=== PATIENT | male | born 1965 | race Caucasian/White ===

== ENCOUNTER → 2022-03-29 14:14 | Outpatient (BNVA) | payer MEDICAID, SELFPAY | PROVIDERS: PCP Student in an Organized Health Care Education/Training Program; Visit Provider Physician Assistant | DX: R20.0 Anesthesia of skin (principal); R20.2 Paresthesia of skin; G56.20 Lesion of ulnar nerve, unspecified upper limb | CPT/HCPCS: 99202 ==

== ENCOUNTER 2022-05-05 16:33 | Outpatient (REF) | payer MEDICAID, SELFPAY ==
--- NOTE | ~2022-05-05 | MR_ITS ---
EXAMINATION: MR CERVICAL SPINE WITHOUT CONTRAST CLINICAL INFORMATION: Right hand numbness. COMPARISON: There are no prior studies available for comparison. TECHNIQUE: Limited MRI scan of the cervical spine was obtained due to patient claustrophobia. Only localizing sagittal T2 sequences were obtained. FINDINGS: There is a mild levoscoliosis. There is multilevel narrowing of intervertebral disc height with loss of signal, which appears most severe at C4-C5. There is diffuse loss of vertebral body height of T7 which is age indeterminate. There are areas of hyperintense T2 signal in the bodies of T4, T6 and T1 which are nonspecific. There is multilevel foraminal narrowing which appears most severe on the left at C5-C6, C6-C7 and C7-T1. Foraminal narrowing on the right is most severe at C4-C5, C6-C7 and C7-T1 MR/MR cervical spine wo con IMPRESSION: 1. Limited study as described above due to patient claustrophobia. 2. There is multilevel spondylosis with narrowing of intervertebral disc height and foraminal narrowing. There is an age-indeterminate compression fracture of the body of C7. Areas of hyperintense T2 signal are demonstrated in multiple osseous areas which are nonspecific.
--- NOTE | ~2022-05-05 | XR_ITS ---
EXAMINATION: LEFT HAND CLINICAL INFORMATION: History of radiopaque foreign body COMPARISON: None TECHNIQUE: 4 views FINDINGS: There is a 5 mm radiopaque foreign body seen adjacent to the third metatarsal head dorsal aspect. No gross bony abnormality seen. XR/XR pre mri screening IMPRESSION: 5 mm radiopaque foreign body seen adjacent to the third metatarsal head dorsal aspect. No gross bony abnormality seen.
== END 2022-05-05 16:34 | disposition home or self-care (01) ==
LOC: HO.MRI 16:33
PROVIDERS: Visit Provider Physician Assistant
DX: G56.20 Lesion of ulnar nerve, unspecified upper limb (principal); M60.242 Foreign body granuloma of soft tissue, not elsewhere classified, left hand; Z18.10 Retained metal fragments, unspecified
CPT/HCPCS: 72141

== ENCOUNTER 2022-05-18 14:20 | Outpatient (REF) | payer MEDICAID, SELFPAY ==
--- NOTE | 2022-05-18 08:30 | EMG_ITS ---
Right median and ulnar motor and sensory studies were performed. Right radial sensory study was performed and paraspinal muscles were tested with a needle. IMPRESSION: 1. Saum-qz-quaybhhh right ulnar neuropathy across cubital tunnel. 2. Dxra-lc-havncypi right median neuropathy across carpal tunnel. MD YFERI Webb/NICOLE / [id number]
== END 2022-05-18 14:21 | disposition home or self-care (01) ==
LOC: HO.NEURO 14:20
PROVIDERS: Visit Provider Internal Medicine
DX: R20.0 Anesthesia of skin (principal); R20.2 Paresthesia of skin; M65.331 Trigger finger, right middle finger
CPT/HCPCS: 95886; 95909

== ENCOUNTER → 2022-05-29 12:56 | Outpatient (BNVA) | payer MEDICAID, SELFPAY | PROVIDERS: PCP Student in an Organized Health Care Education/Training Program; Visit Provider Orthopaedic Surgery | DX: G56.21 Lesion of ulnar nerve, right upper limb (principal); G56.01 Carpal tunnel syndrome, right upper limb | CPT/HCPCS: 99212 ==

== ENCOUNTER 2022-06-07 09:46 | Outpatient (RCR) | payer MEDICAID, SELFPAY ==
--- NOTE | 2022-06-21 15:50 | MHC.OT.DC ---
[address] [phone] F: [phone] Occupational Therapy Discharge Note Provider: Modesta Morales Diagnosis: Right hand stiffnes. Right ulnar nerve lesion Date of Surgery: Date of Evaluation: 06/07/22 Date of Discharge: 06/21/22 Treatments to Date: 1 Cancellations to Date: No Shows to Date: Discharge Status: Discharge Summary: Pt is a 56 yo male who presents with severe right hand muscle atrophy with a recent diagnosis of mild-moderate ulnar neuropathy across the elbow and median nerve at the carpal tunnel Pt was seen for a night hand extension orthosis and education and practice with self P/AROM to improve joint stiffness and prevent worsening Recommended a short course of OT for ther ex and ADL training. Have not been able to contact pt by telephone to schedule Pt was very drowsy during orthosis fabrication and ROM exercises He is scheduling for a Carpal tunnel release and a Cubital tunnel release. I anticipate re referral at post op visit. Electronically Signed By: Renetta Rowan OT CHT CLT Reviewed/agree with student documentation: Therapist: Please Sign and return to therapist, thank you for your referral.
== END 2022-06-21 15:50 | disposition home or self-care (01) ==
LOC: HO.OT 09:46
PROVIDERS: PCP Student in an Organized Health Care Education/Training Program; Visit Provider Orthopaedic Surgery
DX: G56.21 Lesion of ulnar nerve, right upper limb (principal); M25.641 Stiffness of right hand, not elsewhere classified
CPT/HCPCS: 29130; 97166; 97760

== ENCOUNTER → 2022-07-19 13:35 | Outpatient (BNVA) | payer MEDICAID, SELFPAY | PROVIDERS: PCP Student in an Organized Health Care Education/Training Program; Visit Provider Orthopaedic Surgery | DX: G56.21 Lesion of ulnar nerve, right upper limb (principal); G56.01 Carpal tunnel syndrome, right upper limb | CPT/HCPCS: 99212 ==

== ENCOUNTER 2022-07-24 06:00 | Day surgery (SDC) | payer MEDICAID, SELFPAY ==
[2022-07-17 11:19] VITALS: BMI 24.3
[2022-07-24] VITALS (7 sets, daily range): BP systolic 131–184; BP diastolic 69–100; PULSE 70–88; RESP 17–18; TEMP 36.5–36.6; O2SAT 93–98
[2022-07-24] MEDS: Lactated Ringers 1,000 ML 50 ML IVCONT (06:24)
--- NOTE | 2022-07-24 07:31 | P.CONAN_ITS ---
HPI - Anesthesia Eval Consult details Narrative: 56 yr oldsmoker forright CTS and cubital tunnel PMFSH Active Problems Active Problems: All Active Problems (Updated 07/17/22 @ 11:16 by Becca Kebede RN) Ulnar nerve abnormality (Acute) Cubital tunnel syndrome on right (Acute) Carpal tunnel syndrome of right wrist (Acute) Stiffness of finger joint of right hand (Acute) Past Medical History Medical History Chronic back pain GERD (gastroesophageal reflux disease) History of diverticulitis History of opioid abuse Smoker Surgical History Surgical History History of colon surgery Hx of colonoscopy History of Problems with Anesthesia: No Social History Social History Are you a primary managed care analyst to a significant other at home: No Do you presently have visiting nurse or other home services: No Patient Tobacco Use Status: Current everyday Tobacco user Tobacco use type: Cigarette Cigarette Packs Per Day: 1 Cigarettes Per Day: 20.0 Years Smoked: 42 years Smoked in Last 30 Days: Yes Patient Interested in Nicotine Replacement: No Patient Given Instructions on How to Stop Smoking: Yes Date Education Initiated: 07/17/22 Use of substances other than those prescribed or required for medical reasons: No Substance Use Type Other:: On Suboxone s/p Opioid abuse Substance Use Frequency: Daily Are you DNR?: No Advance Directives: No Advance Directives Information Provided: Yes Advance Directives on File: No Recently lost weight without trying: No Eating poorly because of decreased appetite: No Nutrition Risks: No Nutritional Risk Current occupational status: employed 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, 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 [employer] Allergies Allergy/AdvReac Type Severity Reaction Status Date / Time bees Allergy Severe Hives Uncoded 07/24/22 06:44 Active Medications: Current Medications Lactated Ringer's (Lr) 1,000 mls @ 50 mls/hr IVCONT .Q20H MALLORY Last Admin: 07/24/22 06:24 Dose: 50 mls/hr Home Medications Medication Instructions Recorded Confirmed Last Taken Type buprenorphine 8 mg-naloxone 2 mg 1 film buccal DAILY 03/29/22 07/17/22 07/23/22 23:30 History sublingual film (Suboxone) omeprazole 20 mg capsule,delayed 1 cap PO DAILY 07/24/22 07/24/22 Unknown History release Exam Exam Date and Time: July 24, 2022 0731 Height,Weight and Vital Signs: Height 5 ft 10 in Weight 77.111 kg Last Vital Signs Temp 97.7 F 07/24/22 06:34 Pulse 72 07/24/22 06:34 Resp 18 07/24/22 06:34 BP 157/78 H 07/24/22 06:34 Pulse Ox 96 07/24/22 06:34 O2 Del Method 07/24/22 06:34 Airway Mallampati Class: II TM Dist: >3cm Neck ROM: Full Loose/Missing/Broken Teeth: Yes and Upper Heart: rrr Lungs: cta Assessment and Plan Assessment Anesthesia Assessment: Anesthesia Plan Discussed and Chart Reviewed Final Anesthetic Review History of Problems with Anesthesia: No NPO: Yes ASA Class: II Final Preanesthetic Review: No Changes in Pt Med Stat, Meds/Allgs Chart Reviewed, Consent Obtained/Reviewed and Anes Risks/Benef Reviewed Patient Risk: Low Procedure Risk: Low Anesthetic Plan Anesthetic Plan: GA and Agree w/ Assess. and Plan Disposition: Standard PACU
--- NOTE | 2022-07-24 07:55 | P.OP_ITS ---
Operative Note Operative Note Date of Service: 07/24/22 Narrative: Operative Note Narrative: Preop diagnosis: 1. Right severe Cubital tunnel syndrome with intrinsic wasting and clawing 2. Right carpal tunnel syndrome Postop diagnosis: Same Procedure: 1. Right Cubital Tunnel Release and anterior ulnar nerve transposition 2. Right carpal tunnel release Surgeon: Modesta Morales MD Anesthesia: General Anesthesia Findings: Significant Thickening and fibrosis about the ulnar nerve at the cubital tunnel and as it passed between the 2 heads of the FCU muscle bellies Implants: none Tourniquet time: 45 minutes EBL: 5.0 ml Specimen: none Drains: None Complications: None Disposition: Brought to the recovery room in stable condition Plan: Follow-up in 10-14 days for wound check, and suture removal Indications: The patient is 56 years old with severe right cubital tunnel syndrome with intrinsic wasting and clawing, and right carpal tunnel syndrome . The risks and benefits of operative treatment, including but not limited to risk of damage to blood vessels, nerves, tendons, infection, recurrence, persistent pain or numbness, incomplete resolution of preoperative symptoms, or need for further surgery were discussed with the patient and they wished to proceed with surgery. Procedure: Once consent was obtained patient was brought back to the operating suite and placed in the operating table in a supine position. Perioperative antibiotics and anesthesia was administered by the anesthesia team. The limb was prepped and draped in a standard surgical fashion, and a sterile tourniquet applied to the proximal aspect of the right upper extremity. The limb was elevated exsanguinated with Esmarch bandage and the tourniquet inflated to 250 mm of mercury for a total tourniquet time of 45 minutes. Once assured that we had a good block, a 2.0 cm longitudinal incision was made centered over the right carpal tunnel. The incision was made through the skin to the subcutaneous tissues using a #15 blade. Dissection was made down to the level of the transverse carpal ligament with care being taken to protect the palmar cutaneous nerve. Once the transverse carpal ligament was clearly visualized, a longitudinal incision was made in the transverse carpal ligament 1st using a #15 blade, then using tenotomy scissors under direct visualization. Care was taken to look for and protect the motor branch of the median nerve when seen in this area. Once satisfied with our carpal tunnel release the wound was irrigated with normal saline. A 6 cm gently curved but longitudinally oriented incision was made centered over the cubital tunnel of the right upper extremity. Incision was made through the skin to the subcutaneous tissues using a # 15 Blade. I then dissected down to the level of the medial epicondyle and the cubital tunnel using tenotomy scissors. Care was taken to protect the lateral antebrachial cutaneous nerve. The ulnar nerve was identified just posterior to the medial intermuscular septum. The ulnar nerve was released in a proximal to distal direction using tenotomy in iris scissors while directly visualizing and protecting the ulnar nerve. Significant Thickening and fibrosis was appreciated about the ulnar nerve as it passed through the cubital tunnel and through the 2 heads of the FCU. The ulnar nerve was assessed as I passed the elbow through full flexion and extension and it was found to sublux anteriorly onto the medial epicondyle.. As the ulnar nerve appeared to subluxate over the medial epicondyle, the decision was made to proceed with an anterior ulnar nerve transposition. The matthew bcutaneous tissue was carefully freed from the fascia anterior to the medial epicondyle creating an appropriate bed for the ulnar nerve transposition. A small vessel loop was passed behind the ulnar nerve to help facilitate its mobilization. The ulnar nerve was then freed and carefully transposed anterior to the medial epicondyle. Some of the subcutaneous tissue in the anterior flap was carefully secured to the fascia about the medial epicondyle using some 4-0 Vicryl suture material. This created a sling to prevent posterior subluxation of the ulnar nerve. The elbow was brought through flexion and extension and the ulnar nerve was evaluated in its transposition site and found to have good ability to glide and to be free from undo pressure from the anterior sling. At this point the tourniquet was deflated and hemostasis obtained with a brief period of local pressure and bipolar electrocautery. The wound was copiously irrigated with normal saline. The subcutaneous layer was closed with 4-0 Vicryl suture, and the skin edges were reapproximated with 5-0 nylon suture. The wound was infiltrated with some 0.25% plain ropivacaine at the carpal tunnel site, and with some 2% lidocaine with epinephrine at the elbow for postop pain control and sterile dressings and a posterior splint was applied. The patient appears to have tolerated the procedure well and with no complications. All digits were well vascularized conclusion of the case.
--- NOTE | 2022-07-24 07:55 | MHC.SHP ---
Pre-Procedural Eval Section A Date of Service: 07/24/22 The patient is an INPATIENT: No Changes since office visit: No Cold of Flu in the past 2 weeks, No New Medical Problems, No Changes in Medication and No Patient answered all questions The History & Physical has been completed within 30 days and I have reviewed it.: Yes Section B Chief Complaint: Lesion of ulnar nerve, right upper limb,carpal dania Allergies: Allergies Allergy/AdvReac Type Severity Reaction Status Date / Time bees Allergy Severe Hives Uncoded 07/24/22 06:44 Plan I have reviewed the history and physical and performed a pertinent physical examination on my patient. No changes have occurred unless specified. Time Spent With Patient Time: Total time managing care of this patient today ____ minutes.
== END 2022-07-24 10:48 | disposition home or self-care (01) ==
PROVIDERS: PCP Student in an Organized Health Care Education/Training Program; Visit Provider Orthopaedic Surgery
PROC: (CPT 64721; principal; 2022-07-24 07:30)
PROC: (CPT 64718; 2022-07-24 07:30)
DX: G56.01 Carpal tunnel syndrome, right upper limb (principal); G56.21 Lesion of ulnar nerve, right upper limb; G89.29 Other chronic pain; M54.9 Dorsalgia, unspecified; F11.20 Opioid dependence, uncomplicated; K21.9 Gastro-esophageal reflux disease without esophagitis; Z87.19 Personal history of other diseases of the digestive system; Z79.899 Other long term (current) drug therapy; F17.210 Nicotine dependence, cigarettes, uncomplicated
CPT/HCPCS: 64721; 64718; J0131; J0690; J1100; J1885; J2250; J2370; J2405; J2795; J3010

== ENCOUNTER → 2022-08-08 09:15 | Outpatient (BNVA) | payer MEDICAID, SELFPAY | PROVIDERS: PCP Student in an Organized Health Care Education/Training Program; Visit Provider Orthopaedic Surgery | DX: Z13.89 Encounter for screening for other disorder (principal) ==

== ENCOUNTER 2023-06-04 08:49 | Outpatient (REF) | payer MEDICAID, SELFPAY ==
[2023-06-04 14:35] LABS: Alanine Aminotransferase 15 U/L (0-40); Alkaline Phosphatase 66 U/L (39-117); Aspartate Amino Transferase 19 U/L (5-37); Bilirubin Direct 0.1 mg/dL (0.0-0.5); Bilirubin Total 0.4 mg/dL (0.0-1.0); Total Protein 7.6 g/dL (6.5-8.0)
[2023-06-04 14:52] LABS: Syphilis Screen Nonreactive (Nonreactive)
[2023-06-05 04:48] LABS: HIV AB/AG Nonreactive (Nonreactive); HIV Num 1 0.04 S/CO (0.00-0.99); ~HepC Num1 0.29 S/CO (0.00-0.79); ~Hepatitis C Antibody Nonreactive (Nonreactive)
[2023-06-07 07:49] LABS: TS Negative Control Passed; TS Panel A 0; TS Panel B 0; TS Positive Control Passed; TSpotTB Negative (Negative)
== END 2023-06-04 08:50 | disposition home or self-care (01) ==
LOC: HO.CHCLDS 08:49
PROVIDERS: Visit Provider Family Medicine
DX: F11.20 Opioid dependence, uncomplicated (principal)
CPT/HCPCS: 36415; 80076; 86481; 86780; 86803; 87389

== ENCOUNTER 2023-10-24 09:34 | Outpatient (AMB) | payer MEDICAID, SELFPAY ==
--- NOTE | 2023-10-24 09:39 | MHC.OFFVIS ---
Intake Visit Reasons: OV-R CTR/ Cubital v Trans 07/24/22 AR-follow up Intake Note: Oziel 58 yr old male presents today for his s/p right CTR/ Cubital release from 07/24/22 AR. States he continues to numbness and tingling and states his claw-hand deformity has worsen and is interfering with his work. 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 Allergies bees Allergy (Severe, Uncoded 08/08/22 09:29) Hives HPI HPI OV-R CTR/ Cubital v Trans 07/24/22 AR-follow up: Details: Oziel is a 58 year old right hand dominant man who returns to discuss his right hand numbness & claw deformity. He has a hx of a right carpal tunnel & cubital tunnel release, DOS: 07/24/22. He continues to have numbness in the ring and small finger, which has not improved since his surgery. He has normal sensation in the median nerve distribution. He complains of his claw-hand deformity in his ring & small fingers. He says he is unable to fully extend his fingers. He says this has been affecting his ability to work. 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 He is on Suboxone for a hx of Opioid use for his back pain. He brought with him some paperwork to claim disability & for welfare benefits. Patient says he is unable to work because of his hand. 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 Dense numbness in the ulnar nerve distribution With intrinsic wasting Vascular: Cap refill brisk ROM: He still has a claw-hand deformity, with flexion contractures in the right ring & small fingers He can bring them closed to a fist. Good active extension of the thumb index and middle fingers. Lack of intrinsics for the small and ring finger are leading to muscular imbalance and inability to actively extend the digits at the PIP joint Nerve Conduction study: IMPRESSION: 1. Glaj-vw-nhtqizmq right ulnar neuropathy across cubital tunnel. 2. Ivyq-tq-trkzmjel right median neuropathy across carpal tunnel. Gracie De Anda MD 05/18/2022 MR/MR cervical spine wo con IMPRESSION: 1. Limited study as described above due to patient claustrophobia. 2. There is multilevel spondylosis with narrowing of intervertebral disc height and foraminal narrowing. There is an age-indeterminate compression fracture of the body of C7. Areas of hyperintense T2 signal are demonstrated in multiple osseous areas which are nonspecific. Dictated By: ANTWAN DARNELL MD 05/09/22 Psych Appearance: grossly normal Affect: normal affect Attitude: cooperative Assessment & Plan Assessment & Plan (1) Deformity, hand, claw: Code(s): M21.519 - Acquired clawhand, unspecified hand Category: Medical (2) Stiffness of finger joint of right hand: Code(s): M25.641 - Stiffness of right hand, not elsewhere classified Category: Medical (3) Cubital tunnel syndrome on right: Code(s): G56.21 - Lesion of ulnar nerve, right upper limb Category: Medical (4) Foraminal stenosis of cervical region: Code(s): M48.02 - Spinal stenosis, cervical region Category: Medical Plan Assessment & plan: 1. Right Cubital tunnel syndrome, S/P release & anterior ulnar nerve transposition DOS: 07/24/22 Pre-operatively with dense numbness, severe intrinsic wasting and claw-hand deformity Still with dense numbness, severe intrinsic wasting and claw-hand deformity He continues to have issues with numbness, and proceed worsening of his claw deformity. I see that he did have a C-spine MRI on 05/05/2022 which she was able to tolerate . It does show some C-spine foraminal narrowing. I referred him to our neurosurgery spine specialists for assessment. 2. 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 3. Right Carpal tunnel syndrome, S/P release DOS: 07/24/2022 Pre-operative symptoms intermittent but daily Normal sensation in median nerve distribution postoperatively Scribed for Modesta Morales MD by Timmy Cueto, neuropsychology medical consultant, on 10/24/23 at 10:10 AM, EST. Orders: Orders OT Evaluation and Treatment Today G56.21 - Lesion of ulnar nerve, right upper limb, M21.519 - Acquired clawhand, unspecified hand, M25.641 - Stiffness of right hand, not elsewhere classified Referrals Neuro Spine Referral G56.21 - Lesion of ulnar nerve, right upper limb, M21.519 - Acquired clawhand, unspecified hand, M48.02 - Spinal stenosis, cervical region Coding Level of Care Code Est Pt Level 3 (43391) Diagnoses Deformity, hand, claw M21.519 Stiffness of finger joint of right hand M25.641 Cubital tunnel syndrome on right G56.21 Foraminal stenosis of cervical region M48.02
== END 2023-10-24 10:25 | disposition home or self-care (01) ==
PROVIDERS: PCP Student in an Organized Health Care Education/Training Program; Visit Provider Orthopaedic Surgery
DX: M21.511 Acquired clawhand, right hand (principal); M25.641 Stiffness of right hand, not elsewhere classified; G56.21 Lesion of ulnar nerve, right upper limb; M48.02 Spinal stenosis, cervical region
CPT/HCPCS: 99213

== ENCOUNTER → 2023-10-24 09:34 | Outpatient (BNVA) | payer MEDICAID, SELFPAY | PROVIDERS: PCP Student in an Organized Health Care Education/Training Program; Visit Provider Orthopaedic Surgery | DX: M21.511 Acquired clawhand, right hand (principal); M25.641 Stiffness of right hand, not elsewhere classified; G56.21 Lesion of ulnar nerve, right upper limb; M48.02 Spinal stenosis, cervical region; Z79.891 Long term (current) use of opiate analgesic | CPT/HCPCS: 99212 ==

== ENCOUNTER 2023-11-05 09:22 | Outpatient (AMB) | payer MEDICAID, SELFPAY ==
--- NOTE | 2023-11-05 09:31 | A.SPINEOV_ITS ---
Intake Visit Reasons: Spinal stenosis, cervical region Intake Note: Mr. Franks is here today c/o right hand discomfort with numbness. 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 Morales Thank you for referring Mr Franks to our office today. 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 There may be some numbness on his 4th and 5th digits but it is really nothing that is bothersome a noticeable for the most part. The main thing is the development of the contractures of the hand limiting his motion and range of motion of his fingers. He underwent an EMG last year showing evidence of mild carpal tunnel and mild cubital tunnel and underwent release of both of these nerve entrapments without any improvement in his symptoms. He has not report any pain going down his arm. He occasionally will get neck pain on the right side he has in a car for too long. He does feel like the hand is weaker than it was a year ago, but he has not sure if that is because he just has not been using it or if it is actually becoming more weak. An MRI was attempted and there was suspicion of bilateral neuroforaminal stenosis at C7-T1. He could not complete the MRI because of the amount of noise in the machine. PMH: Previous history of opioid abuse with use of Suboxone currently for back pain and he has been drug free for least 10 years. He had hand surgery in July of 2022 as outlined above. He did have a bout of diverticulitis once which was drained with a pigtail catheter. He has history of GERD. Denies any heart attacks, strokes, bleeding disorders, liver disorders, kidney problems her major intestinal surgery. Social hx: He does smoke cigarettes, but does not drink or use any recreational drugs Medications: Suboxone and omeprazole Allergies: None Physical exam: He is awake alert oriented, he has contractures of his 4th and 5th digits on his right hand. He is able to manually extend his fingers, but can not keep them open on his own. There is some wasting of the thenar muscles and possibly some of the finger intrinsics. 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 His left hand is about a 4+ out of 5. Sensory testing does not reveal any deficits. Reflex testing in the biceps triceps and brachioradialis show diminished reflexes throughout both sides. There may be some slight wasting of his forearm muscles as well. Imaging review: Cervical MRI done at [place] with just a sagittal T2 imaging shows what looks like an old compression fracture at C7 and bilateral neural foraminal stenosis at C7-T1 Impression: This is a 58-year-old gentleman with a previous history of cervical spine fracture at C7 remotely in the past, who has had over the last few years development of contractures of his right hand with loss of function of it because of the inability to extend his fingers. He works as a cost analyst and it makes holding things very difficult. He had an EMG done over a year ago that showed evidence of cubital tunnel and carpal tunnel syndrome he underwent release of both of these nerve entrapments without any improvement. In fact he feels as though his hand has only continued to get worse in the contractures are getting worse. He has no pain shooting down the arm, no subjective sensory symptoms and no objective sensation loss on exam. He does appear to have some wasting of the hand and maybe little of the forearm as well. He has not sure if the weakness in his hand is because of lack of use or if it has a true weakness but he does notice an appreciable worsening of his symptoms. The only imaging we have to review is a cervical spine sagittal image showing what looks like an old C7 fracture and neuroforaminal stenosis at C7-T1. This could cause him to have compromise of the C8 nerve which could give him wasting and muscle loss in the hand. It is possible the loss of muscle tone has caused some of the deformity in the hand were seeing with a contracture. It is unusual that the EMG did not picker and packer a C8 radiculopathy prior to his surgeries. It is also unusual that he has not had any pain radiating down the arm and for the most part does not have any sensory loss when I test him objectively in the office. I think it is worth looking into with a dedicated MRI that I will get with an open MRI which may be would be a bit more tolerable for him. It might all so be worthwhile repeating the EMG since he does state that the symptoms are getting worse. Once the MRI is completed and I have a chance to review with Dr. Penny, I will get back to the patient. Thank you for allowing us to care for your patient. The total time spent with this visit with this patient was 45 minutes reviewing history, physical exam, cervical imaging review, and implementation of treatment plan or further diagnostic testing Rajendra Penny MD,PhD [facility] Orders: Orders MR cervical spine wo con Today M48.02 - Spinal stenosis, cervical region Coding Level of Care Code New Pt Level 4 (27345) Diagnoses Foraminal stenosis of cervical region M48.02
== END 2023-11-05 10:17 | disposition home or self-care (01) ==
PROVIDERS: PCP Student in an Organized Health Care Education/Training Program; Referring Provider Orthopaedic Surgery; Visit Provider Physician Assistant
DX: M48.02 Spinal stenosis, cervical region (principal)
CPT/HCPCS: 99204

== ENCOUNTER → 2023-11-05 09:22 | Outpatient (BNVA) | payer MEDICAID, SELFPAY | PROVIDERS: PCP Student in an Organized Health Care Education/Training Program; Visit Provider Physician Assistant | DX: M48.02 Spinal stenosis, cervical region (principal) | CPT/HCPCS: 99212 ==

== ENCOUNTER 2023-12-28 14:33 | Outpatient (AMB) | payer MEDICAID, SELFPAY ==
--- NOTE | 2023-12-28 14:41 | HO.SPINEOV ---
Intake Visit Reasons: CT follow up/with in the office Intake Note: Mr. Franks is here today to f/u Re: his CT Scan. 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 We reviewed his CT scan done [facility] and indeed he does have severe foraminal narrowing at the C7-T1 interspace and compression of the right C8 nerve root. Dr. Penny and I met with him discuss the fact that he already has signs of atrophy in the weakness of the hand may not be able to return to any degree of function even with optimal decompression of the nerve given that there are already signs of nerve damage. Therefore, we can not be sure what the outcome of the surgery would be this gentleman feels as though he would like to just live with it as it is rather than risk a neck surgery. He does understand however that there is no expectation that the hand will improve and could continue to get worse. He will let us know if he changes his mind. Total amount of time spent in this visit was 20 minutes in discussion of symptoms, cervical CT imaging results and subsequent plan of care Rajendra Penny MD,PhD [facility] Coding Level of Care Code Est Pt Level 3 (17857) Diagnoses Foraminal stenosis of cervical region M48.02
== END 2023-12-28 14:43 | disposition home or self-care (01) ==
PROVIDERS: PCP Student in an Organized Health Care Education/Training Program; Visit Provider Physician Assistant
DX: M48.02 Spinal stenosis, cervical region (principal)
CPT/HCPCS: 99213

== ENCOUNTER → 2023-12-28 14:33 | Outpatient (BNVA) | payer MEDICAID, SELFPAY | PROVIDERS: PCP Student in an Organized Health Care Education/Training Program; Visit Provider Physician Assistant | DX: M48.02 Spinal stenosis, cervical region (principal) | CPT/HCPCS: 99212 ==

== ENCOUNTER 2024-08-13 12:31 | Outpatient (REF) | payer MEDICAID, SELFPAY ==
[2024-08-13 14:55] LABS: Alanine Aminotransferase 21 U/L (0-40); Alkaline Phosphatase 77 U/L (39-117); Aspartate Amino Transferase 26 U/L (5-37); Bilirubin Direct 0.1 mg/dL (0.0-0.5); Bilirubin Total 0.3 mg/dL (0.0-1.0); Total Protein 7.9 g/dL (6.5-8.0)
--- OUTSIDE RECORDS SUMMARY | 2024-08-13 15:18 | XMS_ITS | Clinical Summary ---
Author Organization [employer] Address [address] [place] [address] Care Team Providers Care Deck And Hull Assembler Name Role Phone Audra Golden MD Primary Care Provider [phone] Allergies No known active allergies Medications albuterol (ProAir HFA) 108 (90 Base) MCG/ACT inhaler inhale 2 puffs by inhalation route 3-4 times every day 7 Active aspirin 81 MG EC tablet Take 1 tablet by mouth at bed time. 8 Active Blood Pressure Monitoring (Omron 3 Series BP Monitor) device Check blood pressure on arm as directed 2 Active diphenhydrAMINE (Benadryl Allergy) 25 MG tablet Take 1 tablet by mouth. 2 Active naloxone (Narcan) 4 mg/0.1 mL nasal spray Administer 0.1 mL into affected nostril(s). 0 Active predniSONE (Deltasone) 20 MG tablet Take 1 tablet by mouth every 12 (twelve) hours. 2 Active predniSONE (Deltasone) 20 MG tablet PLEASE SEE ATTACHED FOR DETAILED DIRECTIONS 2 Active simvastatin (Zocor) 10 MG tablet Take 1 tablet by mouth at bed time. 1 Active nicotine (Nicoderm CQ) 21 MG/24HR patchIndications: Tobacco dependence syndrome Place 1 patch on the skin 1 (one) time each day at the same time. 28 patch 1 3 Active omeprazole OTC (PriLOSEC OTC) 20 MG EC tabletIndications :Gastroesophageal reflux disease, unspecified whether esophagitis present take 1 Tablet by Oral route once a day 90 tablet 1 4 Active Suboxone 8-2 MG SL filmIndications:O pioid dependence, uncomplicated (CMS/HCC) Place 1 Film under the tongue Once per day. 28 Film 1 5 08/20/19 25 Active Active Problems Problem Noted Date Diagnosed Date Contact with and (suspected) exposure to covid-1 9 05/03/2021 Abscess 10/14/2013 Tobacco dependence syndrome 07/03/2013 Uncomplicated opioid dependence 07/03/2013 Gastroesophageal reflux disease 07/03/2013 Diverticulitis 07/03/2013 Encounters Date Type Department Care Team Description 06/30/2024 9:00 AM EST Office Visit [facility] [address] [place] [address] Cameron Mchugh MD Uncomplicated opioid dependence (CMS/HCC) (Primary Dx) 06/30/2024 Travel 06/23/2024 Refill [facility] [address] [place] [address] Caryn Estrada RN Opioid dependence, uncomplicated (CMS/HCC) from Last 3 Months Immunizations Name Administration Dates Next Due Influenza injectable quadrivalent preservative f ree 07/09/2018 Tdap 06/15/2016 Social History Tobacco Use Types Packs/Day Years Used Date Smoking Tobacco: Every Day Cigarettes 1 20 Smokeless Tobacco: Never Tobacco Cessation:Ready to Q uit: No; Counseling Given: No Sex and Gender Information Value Date Recorded Sex Assigned at Male 04/17/2022 10:25 AM EDT Legal Sex Male 10:25 AM EDT Gender Identity Male 04/17/2022 10:25 AM EDT Sexual Orientation Straight 04/17/2022 10 :25 AM EDT Last Filed Vital Signs Vital Sign Reading Time Taken Comments Blood Pressure 164/83 10/25/2023 1:00 PM EDT Pulse 84 10/25/2023 1:00 PM EDT Temperature 36.1 ??C (96.9 ??F) 10/25/2023 1:00 PM ED T Respiratory Rate 19 10/25/2023 1:00 PM EDT Oxygen Saturation 97% 10/25/2023 1:00 PM EDT Inhaled Oxygen Concentration - - Weight 76.2 kg (168 lb) 10/25/2023 1:00 PM EDT Height 177.2 cm (5' 9.78 ) 10/25/2023 1:00 PM ED T Body Mass Index 24.26 10/25/2023 1:00 PM EDT Plan of Treatment Upcoming Encounters Date Type Department Care Team (Late st Contact Info) Description 08/25/2024 9:00 AM EDT Office Visit [facility] [address] [place] [address] Cameron Mchugh MD [address] [place] [address] Health Maintenance Due Date Last Done Comments CT Colonography 1963 Colonoscopy 1963 Colorectal Cancer Screening 1963 Depression Screening 1963 FIT DNA/Cologuard 1963 FIT 1963 FOBT 1963 SDOH Screening 1963 Sigmoidoscopy 1963 Alcohol/Substance Use Screening 1975 Hepatitis A Vaccines (1 of 2 - Risk 2-dose series) 08/18/1982 Pneumococcal Vaccine: 50+ Years (1 of 2 - PCV) 08/18/1982 Lung Cancer Screening 08/18/2013 Zoster Vaccines (1 of 2) 08/18/2013 COVID-19 Vaccine (2 - 2023-2 5 season) 2024 09/08/2022 Influenza Vaccine (#1) 2024 07/09/2018 Tobacco Screening 10/24/2024 10/25/2023 Lipid Panel 10/01/2025 10/01/2020 DTaP/Tdap/Td Vaccines (2 - T d or Tdap) 06/15/2026 06/15/2016 RSV Patients and Patients Aged 60 years or older (1 - 1-dose 75+ series) 08/18/2038 HIV Screening Completed 06/04/2023, 11/21/2021 Hepatitis C Screening Completed 06/04/2023 , 11/21/2021 HIB Vaccines Aged Out No longer eligi ble based on patient's age to complete this topic HPV Vaccines Aged Out No longer eligi ble based on patient's age to complete this topic Hepatitis B Vaccines Aged Out No long er eligible based on patient's age to complete this topic IPV Vaccines Aged Out No longer eligi ble based on patient's age to complete this topic Meningococcal Vaccine Aged Out No shannon julian eligible based on patient's age to complete this topic RSV under 20 months Aged Out No longe r eligible based on patient's age to complete this topic Rotavirus Vaccines Aged Out No longer eligible based on patient's age to complete this topic Procedures Procedure Name Priority Date/Time Associated Diagnosis Comments HEPATIC FUNCTION PANEL Routine 08/13/2024 12:32 PM EST Uncomplicated opioid dependence (CMS/HCC) POCT CHARLES-14 URINE DRUG SCREEN Routine 06/30/2024 9:16 AM EST Uncomplicated opioid dependence (CMS/HCC) HEPATITIS C AB W/REFL TO HCV RNA, QN, PCR Routine 06/04/2023 8:57 AM EST Uncomplicated opioid dependence (CMS/HCC) HIV 1/2 ANTIGEN/ANTIBODY, FOURTH GENERATION W/RFL Routine 06/04/2023 8:57 AM EST Uncomplicated opioid dependence (CMS/HCC) LIPID PANEL, STANDARD Routine 10/01/2020 11:39 AM EDT from Last 3 Months or Most Recently Relevant to Health Maintenance Results * Hepatic Function Panel (08/13/2024 12:32 PM EST) Bilirubin, Total 0.3 0.0 - 1.0 mg/dL [facility] Bilirubin, Direct 0.1 0.0 - 0.5 mg/dL [facility] Aspartate Amino Transferase 26 5 - 37 U/L [facility] Alanine Aminotransferase 21 0 - 40 U/L [facility] Total Protein 7.9 6.5 - 8.0 g/dL [facility] Albumin Level 4.0 3.5 - 5.0 g/dL [facility] Alkaline Phosphatase 77 39 - 117 U/L [facility] Blood Venous blood specimen / Unknown 08/13/2024 12:32 PM EST 08/13/2024 2:18 PM EST us Cameron Mchugh MD LAB BLOOD ORDERABLES Final Resul t [facility] [address] [place] [phone] * POCT CHARLES-14 Urine Drug Screen (06/30/2024 9:16 AM EST) Pathologist [facility]C Negative Cocaine Screen, Urine Negative Opiate Screen, Urine Negative Methamphetamine Screen Urine Negative Amphetamine Screen, Urine Negative Benzodiazepines Screen, Urine Negative Barbiturate Screen, Urine Negative Methadone Screen, Urine Negative Buprenophine Screen, Urine Positive TCA, Urine Negative MDMA Urine Negative ng/mL Oxycodone Screen, Urine Negative Phencyclidine (PCP), Urine Negative Propoxyphene, Urine Negative Urine Urine specimen obtained by clean catch procedure / Unknown 06/30/2024 9:16 AM EST us Cameron Mchugh MD POINT OF CARE TEST ENTER/EDIT OR DERABLES Final Result * Hepatitis C Antibody with Reflex to HCV, RNA, Quantitative, Real-Time PCR (06/04/2023 8:57 AM EST) [facility] Hepatitis C Antibody Nonreactive Nonreactive [facility] Comment:Antibodies to HCV no t detected; does not exclude early acuteHCV infection. Blood Venous blood specimen / Unknown 06/04/2023 8:57 AM EST 06/04/2023 2:05 PM EST us Cameron Mchugh MD LAB BLOOD ORDERABLES Final Resul t [facility] [address] [place] [phone] * HIV-1/2 Antigen and Antibodies, Fourth Generation, with Reflexes (06/04/2023 8:57 AM EST) [facility] HIV AB/AG Nonreactive Nonreactive [facility] Comment:HIV-1 p24 Ag and/or HIV-1/HIV-2 Ab not detected.A test result that is nonreactive does not exclude thepossibility of exposure to or infection with HIV-1 and/orHIV-2. Nonreactive results in this assay for individualswith prior exposure to HIV-1 and/or HIV-2 may be due toantigen and antibody levels that are below the limit ofdetection of this assay.The [employer] HIV Ag/Ab Combo assay result andsupplemental assay results should be interpreted inconjunction with the patient's clinical presentation,history and other laboratory results. If the results areinconsistent with clinical evidence, additional testing issuggested to confirm the result. Blood Venous blood specimen / Unknown 06/04/2023 8:57 AM EST 06/04/2023 2:05 PM EST us Cameron Mchugh MD LAB BLOOD ORDERABLES Final Resul t [facility] [address] [place] [phone] * (ABNORMAL) LIPID PANEL, STANDARD (10/01/2020 11:39 AM EDT) Chol/HDLC Ratio 8.4(H) <5.0 (calc) [facility] Cholesterol, Total 219(H) <200 mg/dL [facility] HDL Cholesterol 26(L) > OR = 40 mg/dL [facility] LDL Cholesterol SEE COMMENT mg/dL (calc) [facility] Comment: ?? LDL cholesterol not calculated. Triglyceride levels greater than 400 mg/dL invalidate calculated LDL results. ?? Reference range: <100 ?? Desirable range <100 mg/dL for primary prevention; ?? <70 mg/dL for patients with CHD or diabetic patients ?? with > or = 2 CHD risk factors. ?? LDL-C is now calculated using the Kurt-Shelton ?? calculation, which is a validated novel method providing ?? better accuracy than the Friedewald equation in the ?? estimation of LDL-C. ?? Kurt MEAD et al. JAYA. 2013;310(19): 2835-3201 ?? (http://education.[employer]/faq/LDT260) Non-HDL Cholesterol 193(H) <130 mg/dL (calc) [facility] Comment: For patients with diabetes plus 1 major ASCVD risk ?? factor, treating to a non-HDL-C goal of <100 mg/dL ?? (LDL-C of <70 mg/dL) is considered a therapeutic ?? option. Triglycerides 415(H) <150 mg/dL [facility] Comment: ?? If a non-fasting specimen was collected, consider repeat triglyceride testing on a fasting specimen if clinically indicated. ?? Desiree et al. J. of Clin. Lipidol. 2015;9:129-169. ?? 10/01/2020 11:3 9 AM EDT us Audra Golden MD LAB BLOOD ORDERABLES Final Resul t [facility] [address] from Last 3 Months or Most Recently Relevant to Health Maintenance Insurance [address] [facility] * Guarantor: Oziel Franks Account Type Relation to Patient Date of Phone Billing Address Personal/Family Self [address] * Guarantor: Oziel Franks Account Type Relation to Patient Date of Phone Billing Address Personal/Family Self [address] * Guarantor: Oziel Franks Account Type Relation to Patient Date of Phone Billing Address Personal/Family Self [address] Care Teams Deck And Hull Assembler Relationship Specialty Start Date End Date Audra Golden MD [address] [place] [phone] PCP - General Family Medicine 06/18/18
== END 2024-08-13 12:32 | disposition home or self-care (01) ==
LOC: HO.CHCLDS 12:31
PROVIDERS: Visit Provider Family Medicine
DX: F11.20 Opioid dependence, uncomplicated (principal)
CPT/HCPCS: 36415; 80076

== ENCOUNTER 2024-12-23 13:49 | Outpatient (AMB) | payer MEDICAID, SELFPAY ==
--- NOTE | 2024-12-23 14:24 | MHC.OFFVIS ---
Vital Signs 12/23/24 15:00 Height 5 ft 10 in Weight 154 lb BMI 22.1 Intake Visit Reasons: OV Right hand pain/deformity Intake Note: Oziel 59 yr old male presents today for his follow up visit for his Right Cubital tunnel syndrome, S/P release & anterior ulnar nerve transposition DOS: 07/24/22. Pre-operatively with dense numbness, severe intrinsic wasting and claw-hand deformity Still with dense numbness, severe intrinsic wasting and claw-hand deformity. At his last visit he was referred to a neuro surgeon for emergency specialist for assessment and also therapy for his hand. States he never received a call to schedule P.T. Allergies bees Allergy (Severe, Uncoded 12/23/24 14:33) Hives HPI HPI OV Right hand pain/deformity: Details: Oziel is a 59 year old right hand dominant man who returns with multiple complaints. He has a hx of a right carpal tunnel & cubital tunnel release, DOS: 07/24/22. He has a new complaint of a mass on the dorsum of his left hand, which has been increasing in size. He says he has a Hx of having a piece of metal in the back of his hand several years ago, which was not removed. He continues to have numbness in the ring and small finger, which has not improved since his surgery. He has normal sensation in the median nerve distribution. He complains of new numbness radiating up the ulnar aspect of his forearm. He complains of his claw-hand deformity in his ring & small fingers. He says he is unable to fully extend his fingers. He was seen by the spine center here at [place] who found severe foraminal narrowing at the C7-T1 interspace and compression of the right C8 nerve root on a CT scan. He was referred to OT hand therapy at his last appointment, but says he never received a call to schedule appointments. He had an appointment scheduled on 11/08/23, which he did not attend. He is on Suboxone for a hx of Opioid use for his back pain. Per Spine center note from 12/28/23: Mr Franks came back in follow-up. We reviewed his CT scan done at [facility] and indeed he does have severe foraminal narrowing at the C7-T1 interspace and compression of the right C8 nerve root. Dr. Penny and I met with him discuss the fact that he already has signs of atrophy in the weakness of the hand may not be able to return to any degree of function even with optimal decompression of the nerve given that there are already signs of nerve damage. Therefore, we can not be sure what the outcome of the surgery would be this gentleman feels as though he would like to just live with it as it is rather than risk a neck surgery. He does understand however that there is no expectation that the hand will improve and could continue to get worse. He will let us know if he changes his mind. 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 He says his sister passed two weeks ago now, and he is generally unhappy overall, also about the fact that he has not worked for 2 years. Neuro: Normal sensation in the median nerve distribution. Dense numbness in the ulnar nerve distribution. New numbness extending up the ulnar forearm With severe intrinsic wasting & muscle atrophy Vascular: Cap refill brisk ROM: He still has a claw-hand deformity, with flexion contractures in the right ring & small fingers He can bring them closed to a fist. Good active extension of the thumb index and middle fingers. Lack of intrinsic for the small and ring finger are leading to muscular imbalance and inability to actively extend the digits at the PIP joint Left hand: He can make a fist and extend all his digits He has an ~1cm diameter soft tissue mass on the dorsal aspect of the hand. It is mobile, subcutaneous, and positioned between the 2nd & 3rd metacarpal necks. Psych Appearance: grossly normal Affect: normal affect Attitude: cooperative Assessment & Plan Assessment & Plan (1) Mass of left hand: Comment: Dorsal Code(s): R22.32 - Localized swelling, mass and lump, left upper limb Category: Medical (2) Numbness of right hand: Comment: Dense ulnar numbness, muscle atrophy & intrinsic wasting Code(s): R20.0 - Anesthesia of skin Category: Medical (3) Deformity, hand, claw: Comment: R Code(s): M21.519 - Acquired clawhand, unspecified hand Category: Medical (4) Foraminal stenosis of cervical region: Code(s): M48.02 - Spinal stenosis, cervical region Category: Medical Plan Assessment & plan: 1. Left dorsal hand mass Measuring ~1cm in diameter, between the 2nd & 3rd metacarpal heads I educated him about this condition I discussed operative and non-operative treatment options The patient would like to proceed with surgery The risks and benefits of operative treatment were discussed with the patient and the patient wishes to proceed with surgery. These risks include, but are not limited to risk of damage to blood vessels, nerves, tendons, infection, recurrence, incomplete relief of preoperative symptoms, persistent pain, possible need for further surgery and the risks associated with regional blocks and anesthesia. The plan is to take the patient to the operating room sometime in the next few weeks for the following procedures: 1. Left dorsal hand mass excision, under general All of the preoperative paperwork including the consent was reviewed today. All the patient's questions were answered. The patient understands that they will be contacted by our project scheduler soon to schedule this procedure He denies Diabetes, blood thinners, asthma, heart, lung, kidney issues. He is on Suboxone with a Hx of drug use 2. Right hand dense numbness Severe foraminal narrowing at the C7-T1 interspace and compression of the right C8 nerve root. With severe intrinsic wasting & muscle atrophy 3. Right Cubital tunnel syndrome, S/P release & anterior ulnar nerve transposition DOS: 07/24/22 Pre-operatively with dense numbness, severe intrinsic wasting and claw-hand deformity Still with dense numbness, severe intrinsic wasting and claw-hand deformity He complains of new numbness radiating up the ulnar aspect of his right forearm I have referred him back to the spine center to be seen for this to again talk with them about possible surgery for this condition. 4. 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 He has been seen by the [place] spine center on 12/28/23, where a neck CT scan was reviewed and surgery was discussed, which he ultimately refused. Again, I have referred him back to Dr. Penny to talk about possible operative intervention. He does understand that he would not likely see improvement in his sensation and also likely not in motor function, but at least it should prevent worsening of his condition. 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 5. Right Carpal tunnel syndrome, S/P release DOS: 07/24/2022 Pre-operative symptoms intermittent but daily Normal sensation in median nerve distribution postoperatively Scribed for Modesta Morales MD by Timmy Cueto, medical technologist blood bank, on 12/23/24 at 2:45 PM, EST. Coding Level of Care Code Est Pt Level 4 (72116) Diagnoses Mass of left hand R22.32 Numbness of right hand R20.0 Deformity, hand, claw M21.519 Foraminal stenosis of cervical region M48.02
--- OUTSIDE RECORDS SUMMARY | 2024-12-23 14:39 | XMS_ITS | Clinical Summary ---
Author Organization [employer] Address [address] [facility] [address] [place] [id number] Care Team Providers Care Collection Systems Worker Name Role Phone Audra Golden MD Primary Care Provider [phone] Allergies No known active allergies Medications albuterol [...] 0.1 mL into affected nostril(s). 0 Active omeprazole OTC (PriLOSEC OTC) 20 MG EC tabletIndications :Gastroesophageal reflux disease, unspecified whether esophagitis present take 1 Tablet by Oral route once a day 90 tablet 1 4 Active simvastatin (Zocor) 10 MG tablet Take 1 tablet (10 mg) by mouth at bedtime. 30 tablet 11 5 09/24/19 26 Active nicotine polacrilex (Nicorette) 4 MG gum Chew 1 each (4 mg) if needed for smoking cessation. 100 each 5 Active Suboxone 8-2 MG SL filmIndications:O pioid dependence, uncomplicated (CMS/HCC) Place 1 Film under the tongue Once per day. Do not start before October 20, 2024. 28 Film 2 5 01/13/20 25 Active Active Problems Problem Noted Date Diagnosed Date Hypercholesteremia 09/23/2024 Contact with and (suspected) exposure to covid-1 9 05/03/2021 Abscess 10/14/2013 Tobacco dependence syndrome 07/03/2013 Uncomplicated opioid dependence 07/03/2013 Gastroesophageal reflux disease 07/03/2013 Diverticulitis 07/03/2013 Encounters Date Type Department Care Team Description 10/24/2024 10:00 AM EDT Clinical Support [facility] [address] [place] [address] Zulma Garcia RN Elevated blood pressure reading in office without diagnosis of hypertension 10/24/2024 Travel 10/20/2024 9:00 AM EDT Office Visit [facility] [address] [place], [place] [phone] Cameron Mchugh MD Opioid type dependence, continuous (CMS/HCC) (Primary Dx) 10/20/2024 Travel 10/13/2024 Refill [facility] [address], [place] [phone] Caryn Estrada RN Opioid dependence, uncomplicated (CMS/HCC) 09/23/2024 11:00 AM EDT Office Visit [facility] [address] [place] [address] Audra Golden MD Elevated BP without diagnosis of hypertension (Primary Dx); Hypercholesteremia; Tobacco dependence syndrome; Right arm pain 09/23/2024 Travel from Last 3 Months Immunizations Immunization Administration Dates Next Due Influenza injectable quadrivalent preservative f ree 07/09/2018 Tdap 06/15/2016 Social History Tobacco Use Types Packs/Day Years Used Date Smoking Tobacco: Every Day Cigarettes 1 20 Smokeless Tobacco: Never Tobacco Cessation:Ready to Q uit: No; Counseling Given: No Depression Answer Date Recorded Patient Health Questionnaire-9 Score 0 09/23/2024 Patient Health Questionnaire-9 Score 0 09/23/2024 Last PHQ-9: Questionnaire Data Not on file 0 09/23/2024 Depression Answer Date Recorded Patient Health Questionnaire-2 Score 0 09/23/2024 Sex and Gender Information Value Date Recorded Sex Assigned at Male 04/17/2022 10:25 AM EDT Legal Sex Male 10:25 AM EDT Gender Identity Male 04/17/2022 10:25 AM EDT Sexual Orientation Straight 04/17/2022 10 :25 AM EDT Last Filed Vital Signs Vital Sign Reading Time Taken Comments Blood Pressure 156/80 10/24/2024 10:10 AM EDT Pulse 70 10/24/2024 10:09 AM EDT Temperature 36.3 C (97.4 F) 09/23/2024 10:53 AM EDT Respiratory Rate 18 09/23/2024 10:53 AM EDT Oxygen Saturation 98% 09/23/2024 10:53 AM EDT Inhaled Oxygen Concentration - - Weight 68.8 kg (151 lb 9.6 oz) 10/24/2024 10:09 AM EDT Height 180.3 cm (5' 11 ) 09/23/2024 10:53 AM EDT Body Mass Index 21.14 09/23/2024 10:53 AM EDT Plan of Treatment Upcoming Encounters Date Type Department Care Team (Late st Contact Info) Description 01/12/2025 9:00 AM EDT Office Visit [facility] [address] [place] [address] Cameron Mchugh MD [address] [place] [address] Health Maintenance Due Date Last Done Comments CT Colonography 1963 Colonoscopy 1963 Colorectal Cancer Screening 1963 FIT DNA/Cologuard 1963 FIT 1963 FOBT 1963 SDOH Screening 1965 Sigmoidoscopy 1963 Disability Screening 1963 Pneumococcal Vaccine: 50+ Years (1 of 2 - PCV) 08/18/1982 Zoster Vaccines (1 of 2) 08/18/2013 COVID-19 Vaccine (2 - 2023-2 5 season) 2024 09/08/2022 Tobacco Screening 10/24/2024 10/25/2023 Influenza Vaccine (#1) 2025 07/09/2018 Alcohol/Substance Use Screening 09/23/2025 09/23/2024 Depression Screening 09/23/2025 09/23/2024, 09/23/2024 Lipid Panel 10/01/2025 10/01/2020 DTaP/Tdap/Td Vaccines (2 [...] patient's age to complete this topic Hepatitis A Vaccines Aged Out No long er eligible based on patient's age to complete this topic Hepatitis B Vaccines Aged Out No long er eligible based on patient's age to complete this topic IPV Vaccines Aged Out No longer eligi ble based on patient's age to complete this topic Meningococcal B Vaccine Aged Out No l onger eligible based on patient's age to complete [...] Procedure Name Priority Date/Time Associated Diagnosis Comments POCT CHARLES-14 URINE DRUG SCREEN Routine 10/20/2024 9:17 AM EDT Opioid type dependence, continuous (CMS/HCC) HEPATITIS C AB W/REFL TO HCV RNA, QN, PCR Routine 06/04/2023 8:57 AM EST Uncomplicated opioid dependence (CMS/HCC) HIV 1/2 ANTIGEN/ANTIBODY, FOURTH GENERATION W/RFL Routine 06/04/2023 8:57 AM EST Uncomplicated opioid dependence (CMS/HCC) LIPID PANEL, STANDARD Routine 10/01/2020 11:39 AM EDT from Last 3 Months or Most Recently Relevant to Health Maintenance Results * POCT CHARLES-14 Urine Drug Screen (10/20/2024 9:17 AM EDT) THC Negative Cocaine Screen, Urine Negative Opiate Screen, Urine Negative Methamphetamine Screen Urine Negative Amphetamine Screen, Urine Negative Benzodiazepines Screen, Urine Negative Barbiturate Screen, Urine Negative Methadone Screen, Urine Negative Buprenophine Screen, Urine Positive TCA, Urine Negative MDMA Urine Negative ng/mL Oxycodone Screen, Urine Negative Phencyclidine (PCP), Urine Negative Fentanyl, Urine Negative Urine Urine specimen obtained by clean catch procedure / Unknown 10/20/2024 9:17 AM EDT us Cameron Mchugh MD POINT OF CARE TEST ENTER/EDIT OR DERABLES Edited Result - Final * Hepatitis C Antibody with Reflex to HCV, RNA, Quantitative, Real-Time PCR (06/04/2023 8:57 AM EST) Hepatitis C Antibody Nonreactive Nonreactive [facility] Comment:Antibodies to HCV no t detected; does not exclude early acuteHCV infection. Blood Venous blood specimen / Unknown 06/04/2023 8:57 AM EST 06/04/2023 2:05 PM EST us Cameron Mchugh MD LAB BLOOD ORDERABLES Final Resul t [facility] [address] [place] [phone] * HIV-1/2 Antigen and Antibodies, Fourth Generation, with Reflexes (06/04/2023 8:57 AM EST) HIV AB/AG Nonreactive Nonreactive [facility] Comment:HIV-1 p24 Ag and/or HIV-1/HIV-2 Ab not detected.A test result that is nonreactive does not exclude thepossibility of exposure to or infection with HIV-1 and/orHIV-2. Nonreactive results in this assay for individualswith prior exposure to HIV-1 and/or HIV-2 may be due toantigen and antibody levels that are below the limit ofdetection of this assay.The Modality HIV Ag/Ab Combo assay result andsupplemental assay results should be interpreted inconjunction with the patient's clinical presentation,history and other laboratory results. If the results areinconsistent with clinical evidence, additional testing issuggested to confirm the result. Blood Venous blood specimen / Unknown 06/04/2023 8:57 AM EST 06/04/2023 2:05 PM EST Cameron Mchugh MD LAB BLOOD ORDERABLES Final Resul t [facility] [address] [place] [phone] * (ABNORMAL) LIPID PANEL, STANDARD (10/01/2020 11:39 AM EDT) Chol/HDLC Ratio 8.4(H) <5.0 (calc) [facility] Cholesterol, Total 219(H) <200 mg/dL [facility] HDL Cholesterol 26(L) > OR = 40 mg/dL [facility] LDL Cholesterol SEE COMMENT mg/dL (calc) [facility] Comment: LDL cholesterol not calculated. Triglyceride levels greater than 400 mg/dL invalidate calculated LDL results. Reference range: <100 Desirable range <100 mg/dL for primary prevention; <70 mg/dL for patients with CHD or diabetic patients with > or = 2 CHD risk factors. LDL-C is now calculated using the Kurt-Shelton calculation, which is a validated novel method providing better accuracy than the Friedewald equation in the estimation of LDL-C. Kurt SS et al. JAYA. 2013;310(19): 3955-8724 (http://education.Esphion.PSafe/faq/RSN722) Non-HDL Cholesterol 193(H) <130 mg/dL (calc) [facility] Comment: For patients with diabetes plus 1 major ASCVD risk factor, treating to a non-HDL-C goal of <100 mg/dL (LDL-C of <70 mg/dL) is considered a therapeutic option. Triglycerides 415(H) <150 mg/dL [facility] Comment: If a non-fasting specimen was collected, consider repeat triglyceride testing on a fasting specimen if clinically indicated. Desiree et al. J. of Clin. Lipidol. 2015;9:129-169. 10/01/2020 11:3 9 AM EDT Audra Golden MD LAB BLOOD ORDERABLES Final Resul t [facility] [address] from Last 3 Months or Most Recently Relevant to Health Maintenance Insurance [address] # [facility] [facility] * Guarantor: Oziel Franks Account Type Relation to Patient Date of Phone Billing Address Personal/Family Self [address] Care Teams Collection Systems Worker Relationship Specialty Start Date End Date Audra Golden MD [address] [place] [phone] PCP - General Family Medicine 06/18/18
[2024-12-23 15:00] VITALS: BMI 22.1
== END 2024-12-23 15:01 | disposition home or self-care (01) ==
LOC: HO.HOS 13:49
PROVIDERS: PCP Student in an Organized Health Care Education/Training Program; Visit Provider Orthopaedic Surgery
DX: R22.32 Localized swelling, mass and lump, left upper limb (principal); R20.0 Anesthesia of skin; M21.5 Acquired clawhand, clubhand, clawfoot and clubfoot; M48.02 Spinal stenosis, cervical region
CPT/HCPCS: 99214

== ENCOUNTER → 2024-12-23 13:49 | Outpatient (BNVA) | payer MEDICAID, SELFPAY | PROVIDERS: PCP Student in an Organized Health Care Education/Training Program; Visit Provider Orthopaedic Surgery | DX: R22.32 Localized swelling, mass and lump, left upper limb (principal); R20.0 Anesthesia of skin; M21.512 Acquired clawhand, left hand; M48.02 Spinal stenosis, cervical region | CPT/HCPCS: 99212 ==